=== PATIENT | female | born 1950 ===

== ENCOUNTER → 2016-08-29 | Outpatient (CLI) | payer OTHER, BC | LOC: BMCIMAGING 11:50 | PROVIDERS: ATTEND Internal Medicine | DX: R07.9 Chest pain, unspecified (principal) ==

== ENCOUNTER → 2016-10-02 | Outpatient (CLI) | payer OTHER, BC | LOC: FIMAGING 11:12 | PROVIDERS: ATTEND Internal Medicine | DX: Z12.39 Encounter for other screening for malignant neoplasm of breast (principal); R92.8 Other abnormal and inconclusive findings on diagnostic imaging of breast | CPT/HCPCS: G0206 ==

== ENCOUNTER → 2016-11-22 | Outpatient (CLI) | payer OTHER, BC | LOC: BMCIMAGING 10:40 | PROVIDERS: ATTEND Internal Medicine | DX: Z13.820 Encounter for screening for osteoporosis (principal); M81.0 Age-related osteoporosis without current pathological fracture ==

== ENCOUNTER → 2017-07-30 | Outpatient (CLI) | payer OTHER, BC | LOC: FIMAGING 11:54 | DX: Z12.31 Encounter for screening mammogram for malignant neoplasm of breast (principal) ==

== ENCOUNTER → 2017-08-13 | Outpatient (CLI) | payer OTHER, BC | LOC: BMCIMAGING 12:24 | PROVIDERS: ATTEND Internal Medicine | DX: R05 Cough (principal) ==

== ENCOUNTER → 2017-08-19 | Outpatient (CLI) | payer OTHER, BC ==
[~2017-08-19] MED LIST: IOPAMIDOL (ISOVUE-300) 100 ML BTL ONE
== END ==
LOC: FIMAGING 16:19
PROVIDERS: ATTEND Internal Medicine
DX: N20.0 Calculus of kidney (principal); R93.421 Abnormal radiologic findings on diagnostic imaging of right kidney; R93.422 Abnormal radiologic findings on diagnostic imaging of left kidney; R93.2 Abnormal findings on diagnostic imaging of liver and biliary tract; D25.9 Leiomyoma of uterus, unspecified; Z85.028 Personal history of other malignant neoplasm of stomach
CPT/HCPCS: 74177; Q9967

== ENCOUNTER → 2018-05-05 | Outpatient (CLI) | payer OTHER, BC | LOC: FIMAGING 09:43 | PROVIDERS: ATTEND Internal Medicine | DX: Z08 Encounter for follow-up examination after completed treatment for malignant neoplasm (principal); Z85.09 Personal history of malignant neoplasm of other digestive organs; R14.0 Abdominal distension (gaseous); N28.1 Cyst of kidney, acquired; K44.9 Diaphragmatic hernia without obstruction or gangrene; D25.9 Leiomyoma of uterus, unspecified; M47.895 Other spondylosis, thoracolumbar region | CPT/HCPCS: 74177; Q9967; 82565-PO ==

== ENCOUNTER → 2018-07-31 | Outpatient (CLI) | payer OTHER, BC | LOC: FIMAGING 10:36 ==